=== PATIENT | male | born 1945 | race Caucasian/White ===

== ENCOUNTER 2023-08-06 20:02 | Emergency (ER) | payer MEDICARE ==
[~2023-08-06] VITALS: Ht 172.7 cm; Wt 108.9 kg
[~2023-08-06 20:02] MED LIST: CALCIUM; DRAMAMINE PO; FISH1000 PO; MELA3 PO; TRAZ100 PO
[2023-08-06 20:14] VITALS: BP 159/93
[2023-08-06] MEDS ORDERED: Tetanus and Diphtheria Toxoid 0.5 ML INJ IM ONE ×2 (20:20→22:25)
== END 2023-08-06 22:33 | disposition home or self-care (01) ==
LOC: ER 20:02
DX: S00.81XA Abrasion of other part of head, initial encounter (principal); S00.412A Abrasion of left ear, initial encounter; W10.8XXA Fall (on) (from) other stairs and steps, initial encounter; Y92.009 Unspecified place in unspecified non-institutional (private) residence as the place of occurrence of the external cause; Z79.899 Other long term (current) drug therapy
CPT/HCPCS: 70450; 90471; 90714; 99284-25

== ENCOUNTER 2024-01-15 08:12 | Day surgery (SDC) | payer MEDICARE ==
[2024-01-15] VITALS (23 sets, daily range): BP systolic 110–176; BP diastolic 70–135
[~2024-01-15] VITALS: Ht 175.3 cm; Wt 104.1 kg
[~2024-01-15 08:12] MED LIST changes: +Benzocaine Oral Spray 0.5ML UD ONE; +Lactated Ringer's 1,000 ML IV SCH; +propofoL 40 ML IV ONE
[2024-01-15] MEDS ORDERED: METO25ER PO (08:40)
[2024-01-15] MEDS ORDERED: BRINTELLIX5 MG PO (08:40)
[2024-01-15] MEDS ORDERED: TOPI25C PO (08:40)
--- NOTE | 2024-01-15 08:51 | NUR ---
01/15/24 0851 Jane Alexandre HISTORY, CHART, MEDICATIONS AND ALLERGIES REVIEWED BEFORE START OF PROCEDURE. PATIENT CONFIRMS NPO STATUS AND AGREES WITH SCHEDULED PROCEDURE. 3-LEAD EKG REVIEWED WITH PHYSICIAN PRIOR TO START OF PROCEDURE. MONITOR INTACT WITH CONTINUOUS PULSE OXIMETRY,CAPNOGRAPHY, 3-LEAD EKG, INTERMITTENT BP. SUPPLEMENTAL O2 TO BE TITRATED THROUGHOUT PROCEDURE TO MAINTAIN O2 SATURATION ABOVE 90%. PATIENT DETERMINED TO BE ASA APPROPRIATE FOR PROPOFOL SEDATION PRIOR TO START OF PROCEDURE BY DR. DALY
--- NOTE | 2024-01-15 09:44 | NUR ---
PT TO DAY SURGERY STEP DOWN FROM EGD AND COLONOSCOPY; BEDSIDE REPORT RECEIVED. PT IS AWAKE, ALERT AND ORIENTED; ABLE TO MOVE SELF IN BED. PT TALKATIVE. VSS. PT HAS NO COMPLAINTS AT THIS TIME.
[2024-01-15] MEDS ORDERED: Midazolam HCl 1MG / ML 2ML Vial ONE (09:46)
--- NOTE | 2024-01-15 09:59 | NUR ---
Discharge instructions reviewed with patient. Patient verbalizes understanding. Copy given to patient to take home. Patient States Post-Procedure ride home has been arranged. Pt tolerating po fluids well. RN to call Omeperazole 20mg PO daily into [facility] for pt per Dr Welsh order. This reviewed with pt and he states an understanding.
--- NOTE | 2024-01-15 10:08 | NUR ---
Patient up to Ambulate independently. Gait steady. Discharged via wheelchair to private car for ride home.
== END 2024-01-15 10:09 | disposition home or self-care (01) ==
LOC: ORSCMMR 08:12 → ORD 09:00 → ORSCMMR 10:09
PROVIDERS: Internal Medicine Gastroenterology
PROC: 0DBM8ZX Excision of Descending Colon, Via Natural or Artificial Opening Endoscopic, Diagnostic (ICD-10-PCS; principal; 2024-01-15 09:00)
PROC: 0DB68ZX Excision of Stomach, Via Natural or Artificial Opening Endoscopic, Diagnostic (ICD-10-PCS; principal; 2024-01-15 09:00)
PROC: 0DB48ZX Excision of Esophagogastric Junction, Via Natural or Artificial Opening Endoscopic, Diagnostic (ICD-10-PCS; principal; 2024-01-15 09:00)
PROC: 0DB98ZX Excision of Duodenum, Via Natural or Artificial Opening Endoscopic, Diagnostic (ICD-10-PCS; principal; 2024-01-15 09:00)
PROC: 0DBL8ZX Excision of Transverse Colon, Via Natural or Artificial Opening Endoscopic, Diagnostic (ICD-10-PCS; principal; 2024-01-15 09:00)
PROC: 0DBN8ZX Excision of Sigmoid Colon, Via Natural or Artificial Opening Endoscopic, Diagnostic (ICD-10-PCS; principal; 2024-01-15 09:00)
DX: D50.0 Iron deficiency anemia secondary to blood loss (chronic) (principal); K28.4 Chronic or unspecified gastrojejunal ulcer with hemorrhage; D12.3 Benign neoplasm of transverse colon; D12.4 Benign neoplasm of descending colon; D12.5 Benign neoplasm of sigmoid colon; K62.5 Hemorrhage of anus and rectum; I10 Essential (primary) hypertension; Z98.84 Bariatric surgery status; Z79.899 Other long term (current) drug therapy; Z87.891 Personal history of nicotine dependence
CPT/HCPCS: 88305; 88342; A9270; J2250; J2704